=== PATIENT | female | born 1970 | race Caucasian/White ===

== ENCOUNTER 2017-03-01 09:12 | Emergency (ER) | payer OTHER ==
[~2017-03-01] VITALS: Ht 157.5 cm; Wt 100.3 kg
[2017-03-01] MEDS ORDERED: AMLO5TAB2 (09:27)
[2017-03-01] MEDS ORDERED: SIMV20TA2 (09:27)
[2017-03-01] MEDS ORDERED: ASPI81TA7 (09:27)
[2017-03-01] MEDS ORDERED: ASPI81TA4 (09:27)
[2017-03-01] MEDS ORDERED: IBUP600T26 (09:27)
[2017-03-01] MEDS ORDERED: LISI-538 (09:27)
[2017-03-01] MEDS ORDERED: CARV3.12 (09:27)
[2017-03-01] MEDS ORDERED: ALBUTEROL 90 MCG/ACT 8GM HFA INHALER INH ONE (10:30)
[2017-03-01 11:00] VITALS: BP 172/102
[2017-03-01] MEDS ORDERED: MUCI600T34 PO (11:05)
[2017-03-01] MEDS ORDERED: ZITHTAB PO (11:05)
[2017-03-01] MEDS ORDERED: BENZ200C44 PO (11:05)
[2017-03-01] MEDS ORDERED: PRED20TA PO (11:05)
== END 2017-03-01 11:12 | disposition home or self-care (01) ==
LOC: M ED 10:09
DX: R05 Cough (principal); J02.9 Acute pharyngitis, unspecified; I10 Essential (primary) hypertension; E78.00 Pure hypercholesterolemia, unspecified; E03.9 Hypothyroidism, unspecified; F17.200 Nicotine dependence, unspecified, uncomplicated; Z90.79 Acquired absence of other genital organ(s); Z90.89 Acquired absence of other organs; Z79.82 Long term (current) use of aspirin; Z79.899 Other long term (current) drug therapy; Z88.1 Allergy status to other antibiotic agents

== ENCOUNTER → 2023-08-31 | Outpatient (CLI) | payer OTHER ==
[~2023-08-31] MED LIST: AMLO1TAB24; AMOX875T2; ASPI-546; ASPI81TA52; ATOR80TA59; BENZ200C70 PO; CARV3.12; COLA100C5 PO; IBUP-1022; LISI20TA33; LORA-1041; MUCI600T37 PO; OMEP-173; PRED20TA PO; SIMV20TA22; VITMTA PO; ZITHTAB PO; vitamin c gummies PO
[2023-08-31 16:25] LABS: BASO % 0.3 % (0.0-1.0); EOS # 0.2 10^3/uL (0.0-0.5); EOS % 2.2 % (0.0-3.0); HEMOGLOBIN 14.3 g/dl (12.0-15.5); LYMPH # 2.9 10^3/uL (1.5-5.0); LYMPH % 31.2 % (24.0-44.0); MEAN CORPUSCULAR HEMOGLOBIN 29.1 pg (27.0-33.0); MEAN CORPUSCULAR VOLUME 85.5 fl (80.0-96.0); MONO # 0.6 10^3/uL (0.0-0.8); MONO % 6.2 % (2.0-8.0); NEUTROPHILS # 5.5 10^3/uL (1.5-8.5); NEUTROPHILS % 59.9 % (36.0-66.0); PLATELET COUNT, AUTOMATED 310 10^3/uL (150-450); RED BLOOD COUNT 4.91 10^6/uL (4.00-5.40); WHITE BLOOD COUNT 9.1 10^3/uL (4.0-10.0)
[2023-08-31 16:46] LABS: ALBUMIN 3.5 G/DL (3.2-5.2); ALKALINE PHOSPHATASE 91 U/L (46-116); ALT/SGPT 19 U/L (7.0-40); AST/SGOT 22 U/L (<34); BILIRUBIN,TOTAL 0.5 MG/DL (0.3-1.2); BLOOD UREA NITROGEN 11 MG/DL (9-23); CALCIUM LEVEL 9.2 MG/DL (8.5-10.1); CARBON DIOXIDE LEVEL 28 MMOL/L (20-31); CHLORIDE LEVEL 108 MMOL/L (98-107); CREATININE FOR GFR 0.72 MG/DL (0.55-1.30); GLOMERULAR FILTRATION RATE > 60.0 (>51); GLUCOSE, FASTING 112 MG/DL (60-100); POTASSIUM SERUM 3.7 MMOL/L (3.5-5.1); SODIUM LEVEL 142 MMOL/L (136-145); TOTAL PROTEIN 6.6 G/DL (5.7-8.2)
[2023-08-31 17:18] LABS: HIV 1&2 SCREEN NEGATIVE (NEGATIVE)
== END ==
LOC: M ONCR 14:50
PROVIDERS: ATTEND General Practice
DX: C51.8 Malignant neoplasm of overlapping sites of vulva (principal); F17.210 Nicotine dependence, cigarettes, uncomplicated; Z71.2 Person consulting for explanation of examination or test findings; Z79.82 Long term (current) use of aspirin; Z79.899 Other long term (current) drug therapy; Z88.1 Allergy status to other antibiotic agents; Z90.710 Acquired absence of both cervix and uterus
CPT/HCPCS: 36415; 80053; 85025; 86780; 87389; G0463

== ENCOUNTER 2023-09-06 13:51 | Outpatient (RCR) | payer OTHER | END 2023-09-18 | LOC: M ONCR 13:51 | PROVIDERS: ATTEND General Practice | DX: Z51.0 Encounter for antineoplastic radiation therapy (principal); C51.8 Malignant neoplasm of overlapping sites of vulva ==

== ENCOUNTER → 2023-10-04 | Outpatient (CLI) | payer OTHER ==
[~2023-10-04] MED LIST changes: +IBUP200C25 PO; +LIDO30CR18 TOP; +LIDOCAINE 1% MDV 20ML VIAL As Ordered ONE; +LIDOCAINE W/EPINEPHRINE 1% 20ML VIAL As Ordered ONE; +MIDAZOLAM INJ 2MG/2ML VIAL As Ordered ONE; +ONDA8TAB8 PO; +PERCOCET PO; +PROC10TA5 PO; +[UNRECOGNIZED DRUG - CODE] TP; +ceFAZolin 2 GM/D5W 50 ML IV BAG As Ordered ONE; +ceFAZolin SOD 2 GM in IV 1 EA IV ONE; +fentaNYL 100 MCG/2 ML INJECTION As Ordered ONE
[2023-10-04 12:40] VITALS: TEMP 98.2
[2023-10-04 16:45] VITALS: BP 177/73; O2SAT 97
== END ==
LOC: M IRPRO 12:29
PROVIDERS: ATTEND Internal Medicine Medical Oncology
DX: C21.0 Malignant neoplasm of anus, unspecified (principal)
CPT/HCPCS: 36561; 99152; 99153; J0690; J2250; J3010

== ENCOUNTER → 2023-10-19 | Outpatient (RCR) | payer OTHER ==
[~2023-10-19] MED LIST changes: -LIDOCAINE 1% MDV 20ML VIAL As Ordered ONE; -LIDOCAINE W/EPINEPHRINE 1% 20ML VIAL As Ordered ONE; -MIDAZOLAM INJ 2MG/2ML VIAL As Ordered ONE; +POTA-298 PO; +THERTAB21 PO; -ceFAZolin 2 GM/D5W 50 ML IV BAG As Ordered ONE; -ceFAZolin SOD 2 GM in IV 1 EA IV ONE; -fentaNYL 100 MCG/2 ML INJECTION As Ordered ONE
== END ==
LOC: M ONCR 09-26 08:19 → M ONCM 10-07 08:30 → M ONCR 10-10 08:04
PROVIDERS: ATTEND General Practice
DX: Z51.0 Encounter for antineoplastic radiation therapy (principal); C51.8 Malignant neoplasm of overlapping sites of vulva

== ENCOUNTER 2023-11-16 12:29 | Outpatient (RCR) | payer OTHER ==
[~2023-11-16 12:29] MED LIST changes: +MAG-400T7 PO; +MULT-193 PO; +[UNRECOGNIZED DRUG - SUPPLY]
== END 2023-11-17 ==
LOC: M ONCR 12:29
PROVIDERS: ATTEND General Practice
DX: Z51.0 Encounter for antineoplastic radiation therapy (principal); C51.8 Malignant neoplasm of overlapping sites of vulva

== ENCOUNTER → 2023-11-23 | Outpatient (CLI) | payer OTHER | LOC: M ONCR 12:28 | PROVIDERS: ATTEND General Practice | DX: L59.8 Other specified disorders of the skin and subcutaneous tissue related to radiation (principal); W88.8XXA Exposure to other ionizing radiation, initial encounter; Z79.891 Long term (current) use of opiate analgesic ==

== ENCOUNTER → 2023-12-07 | Outpatient (CLI) | payer OTHER ==
[~2023-12-07] MED LIST changes: +CEPH500C PO; +DEXA4TA PO
== END ==
LOC: M ONCR 10:14
PROVIDERS: ATTEND General Practice
DX: R22.2 Localized swelling, mass and lump, trunk (principal); R63.0 Anorexia; R11.0 Nausea

== ENCOUNTER → 2023-12-08 | Outpatient (CLI) | payer OTHER | LOC: M RAD 11:02 | PROVIDERS: ATTEND General Practice | DX: C51.8 Malignant neoplasm of overlapping sites of vulva (principal) ==

== ENCOUNTER 2023-12-15 23:14 | Inpatient (IN) | payer OTHER ==
[~2023-12-15] VITALS: Ht 162.6 cm; Wt 54.0 kg
[~2023-12-15 23:14] MED LIST changes: +BACTDSTA PO
[2023-12-16] MEDS: NS 1,000 ML IV ONE (00:37)
[2023-12-16 00:44] LABS: BASO % 0.2 % (0.0-1.0); EOS # 0.1 10^3/uL (0.0-0.5); EOS % 0.4 % (0.0-3.0); HEMATOCRIT 40.2 % (36.0-47.0); HEMOGLOBIN 13.7 g/dl (12.0-15.5); LYMPH % 8.3 % (24.0-44.0); MEAN CORPUSCULAR HEMOGLOBIN 29.3 pg (27.0-33.0); MEAN CORPUSCULAR HGB CONC 34.1 g/dl (32.0-36.5); MEAN CORPUSCULAR VOLUME 86.1 fl (80.0-96.0); MONO # 1.2 10^3/uL (0.0-0.8); MONO % 9.3 % (2.0-8.0); NEUTROPHILS % 80.9 % (36.0-66.0); PLATELET COUNT, AUTOMATED 213 10^3/uL (150-450); RED BLOOD COUNT 4.67 10^6/uL (4.00-5.40); WHITE BLOOD COUNT 12.4 10^3/uL (4.0-10.0)
[2023-12-16 01:05] LABS: BLOOD UREA NITROGEN 47 MG/DL (9-23); CARBON DIOXIDE LEVEL 25 MMOL/L (20-31); CHLORIDE LEVEL 103 MMOL/L (98-107); CREATININE FOR GFR 1.67 MG/DL (0.55-1.30); GLUCOSE, FASTING 159 MG/DL (60-100); POTASSIUM SERUM 4.4 MMOL/L (3.5-5.1); SODIUM LEVEL 139 MMOL/L (136-145)
[2023-12-16 02:09] LABS: LIPASE 24 U/L (12-53)
[2023-12-16 02:11] LABS: ALBUMIN 3.3 G/DL (3.2-5.2); ALKALINE PHOSPHATASE 85 U/L (46-116); ALT/SGPT 28 U/L (7.0-40); AST/SGOT 22 U/L (<34); BILIRUBIN,DIRECT 0.2 MG/DL (<0.4); BILIRUBIN,TOTAL 0.6 MG/DL (0.3-1.2); CK-MB VALUE MASS < 1.0 NG/ML (<3.6); CPK CREATINE PHOSPHOKINASE 38 U/L (34-145); MB/CK RELATIVE INDEX 2.63 (< OR =4); TOTAL PROTEIN 7.3 G/DL (5.7-8.2)
[2023-12-16] MEDS: METOCLOPRAMIDE INJ 10MG/2ML VIAL IV ONE (02:17)
[2023-12-16] MEDS ORDERED: ISOVUE-370 76% 100ML VIAL As Ordered ONE (02:23)
[2023-12-16 03:03] LABS: CK-MB VALUE MASS < 1.0 NG/ML (<3.6)
[2023-12-16 03:05] LABS: CPK CREATINE PHOSPHOKINASE 44 U/L (34-145); MB/CK RELATIVE INDEX 2.27 (< OR =4)
[2023-12-16] MEDS ORDERED: NS 1,000 ML IV SCH (05:35)
[2023-12-16] MEDS ORDERED: HYDROMORPHONE HCL 0.5 MG/ 0.5 ML SYRINGE IV PRN (06:10)
[2023-12-16] MEDS: PIPERACILLIN/TAZOBACTAM SOD 3.375 GM in D5W MINI-BAG PLUS 50 ML IV ONE (06:23)
[2023-12-16] MEDS: SODIUM CHLORIDE 0.9% 1000ML IV SCH (06:23)
[2023-12-16] MEDS ORDERED: LISI40TA4 PO (06:26)
[2023-12-16] MEDS ORDERED: DOCU100C16 PO (06:26)
[2023-12-16] MEDS ORDERED: ATOR80TA59 PO (06:26)
[2023-12-16] MEDS ORDERED: ALBU8.5H INH (06:26)
[2023-12-16] MEDS ORDERED: LORA-622 PO (06:26)
[2023-12-16] MEDS ORDERED: ASPI-615 PO (06:26)
[2023-12-16] MEDS ORDERED: OMEP1CAP73 PO (06:26)
[2023-12-16] MEDS ORDERED: MULT-40 PO (06:26)
[2023-12-16] MEDS ORDERED: MIRA33506 PO (06:26)
[2023-12-16] MEDS ORDERED: DEXTROSE 50% 50ML SYRINGE IV PRN (06:30)
[2023-12-16] MEDS ORDERED: HOME MED LIST COMPLETE! XX SCH (06:30)
[2023-12-16] MEDS ORDERED: GLUCAGON INJ 1MG VIAL SC PRN (06:30)
[2023-12-16] MEDS ORDERED: GLUCOSE 4GM CHEW TABLET PO PRN (06:30)
[2023-12-16] MEDS: INSULIN LISPRO (NovoLOG) PER UNIT SC SCH (08:41)
[2023-12-16] MEDS: LR 1,000 ML IV SCH (08:50)
[2023-12-16 09:25] LABS: BASO % 0.1 % (0.0-1.0); EOS # 0.1 10^3/uL (0.0-0.5); EOS % 0.7 % (0.0-3.0); HEMATOCRIT 33.4 % (36.0-47.0); LYMPH # 0.8 10^3/uL (1.5-5.0); LYMPH % 8.5 % (24.0-44.0); MEAN CORPUSCULAR HEMOGLOBIN 29.5 pg (27.0-33.0); MEAN CORPUSCULAR HGB CONC 33.8 g/dl (32.0-36.5); MEAN CORPUSCULAR VOLUME 87.2 fl (80.0-96.0); MONO # 0.8 10^3/uL (0.0-0.8); MONO % 9.5 % (2.0-8.0); NEUTROPHILS # 7.1 10^3/uL (1.5-8.5); NEUTROPHILS % 80.6 % (36.0-66.0); PLATELET COUNT, AUTOMATED 190 10^3/uL (150-450); RED BLOOD COUNT 3.83 10^6/uL (4.00-5.40); WHITE BLOOD COUNT 8.8 10^3/uL (4.0-10.0)
[2023-12-16 09:42] LABS: CREATININE FOR GFR 1.33 MG/DL (0.55-1.30); GLOMERULAR FILTRATION RATE 44.3 (>51); HEMOGLOBIN 11.3 g/dl (12.0-15.5); MAGNESIUM LEVEL 1.4 MG/DL (1.8-2.4)
[2023-12-16 10:14] VITALS: BP 116/65; TEMP 97.5; O2SAT 99
[2023-12-16] MEDS: PANTOPRAZOLE 40MG VIAL IV SCH (11:18)
[2023-12-16] MEDS: HYDROMORPHONE HCL 0.5 MG/ 0.5 ML SYRINGE IV PRN (11:19)
[2023-12-16] MEDS: MAG SULF 1GM/100ML (MAG RUN) 1 GM in IV 1 EA IV SCH (11:19)
[2023-12-16] MEDS ORDERED: PIPERACILLIN/TAZOBACTAM SOD 3.375 GM in D5W MINI-BAG PLUS 50 ML IV SCH (12:00)
[2023-12-16] MEDS ORDERED: ACETAMINOPHEN TAB 650MG DOSE (2X325MG) PO PRN (12:05)
[2023-12-16] MEDS ORDERED: HEPARIN SOD (PORCINE) 5000UNITS/ML 1ML VIAL/SYRINGE SQ SCH (12:05)
[2023-12-16] MEDS: NICOTINE 14 MG/24 HR TRANSDERMAL TD SCH (12:37)
[2023-12-16 13:21] LABS: CALCIUM LEVEL 8.1 MG/DL (8.5-10.1)
[2023-12-16] MEDS: PIPERACILLIN/TAZOBACTAM SOD 2.25 GM in D5W MINI-BAG PLUS 50 ML IV SCH (13:40)
[2023-12-16 14:00] VITALS: BP 126/61; TEMP 97.3; O2SAT 99
[2023-12-16] MEDS: PIPERACILLIN/TAZOBACTAM SOD 3.375 GM in D5W MINI-BAG PLUS 50 ML IV SCH (18:26)
[2023-12-16 20:39] VITALS: BP 131/60; TEMP 97.3; O2SAT 98
[2023-12-16] MEDS: HEPARIN SOD (PORCINE) 5000UNITS/ML 1ML VIAL/SYRINGE SC SCH (21:43)
[2023-12-17 05:25] VITALS: BP 123/80; TEMP 97.5; O2SAT 99
[2023-12-17 06:10] LABS: WHITE BLOOD COUNT 7.7 10^3/uL (4.0-10.0)
[2023-12-17 06:11] LABS: BASO % 0.1 % (0.0-1.0); EOS # 0.1 10^3/uL (0.0-0.5); EOS % 1.4 % (0.0-3.0); HEMATOCRIT 31.1 % (36.0-47.0); HEMOGLOBIN 10.3 g/dl (12.0-15.5); LYMPH # 0.6 10^3/uL (1.5-5.0); LYMPH % 7.6 % (24.0-44.0); MEAN CORPUSCULAR HEMOGLOBIN 28.7 pg (27.0-33.0); MEAN CORPUSCULAR HGB CONC 33.1 g/dl (32.0-36.5); MEAN CORPUSCULAR VOLUME 86.6 fl (80.0-96.0); MONO # 0.8 10^3/uL (0.0-0.8); MONO % 10.3 % (2.0-8.0); NEUTROPHILS # 6.1 10^3/uL (1.5-8.5); NEUTROPHILS % 80.2 % (36.0-66.0); PLATELET COUNT, AUTOMATED 180 10^3/uL (150-450); RED BLOOD COUNT 3.59 10^6/uL (4.00-5.40)
[2023-12-17 06:24] LABS: CALCIUM LEVEL 8.5 MG/DL (8.5-10.1); CREATININE FOR GFR 1.06 MG/DL (0.55-1.30); GLOMERULAR FILTRATION RATE 57.5 (>51); POTASSIUM SERUM 3.8 MMOL/L (3.5-5.1)
[2023-12-17] MEDS: LACTOBACILLUS ACIDOPHILUS CAP (BACID) PO SCH (08:21)
[2023-12-17] MEDS: IPRATROPIUM 0.5MG/ALBUTEROL 2.5MG INH SOL UD 3ML (DUONEB) NEB SCH ×2 (09:13→10:59)
[2023-12-17] MEDS: CETIRIZINE (ZyrTEC) 10 MG TAB PO SCH (09:25)
[2023-12-17] MEDS: guaiFENesin ER TABLET 600 MG TAB PO SCH (09:25)
[2023-12-17 14:00] VITALS: BP 120/60; TEMP 97.5; O2SAT 100
[2023-12-17] MEDS ORDERED: GLUCAGON INJ 1MG VIAL SC PRN (14:20)
[2023-12-17] MEDS ORDERED: GLUCOSE 4GM CHEW TABLET PO PRN (14:20)
[2023-12-17] MEDS ORDERED: DEXTROSE 50% 50ML SYRINGE IV PRN (14:20)
[2023-12-17] MEDS: INSULIN LISPRO (NovoLOG) PER UNIT SC SCH ×2 (17:28→21:00)
[2023-12-17] MEDS ORDERED: INSULIN LISPRO (NovoLOG) PER UNIT SC SCH ×2 (17:30→21:00)
[2023-12-17 20:09] VITALS: BP 152/69; TEMP 97.3; O2SAT 100
[2023-12-18 06:10] LABS: BLOOD UREA NITROGEN 25 MG/DL (9-23); CALCIUM LEVEL 8.2 MG/DL (8.5-10.1); CARBON DIOXIDE LEVEL 24 MMOL/L (20-31); CHLORIDE LEVEL 111 MMOL/L (98-107); CREATININE FOR GFR 0.87 MG/DL (0.55-1.30); GLOMERULAR FILTRATION RATE > 60.0 (>51); GLUCOSE, FASTING 101 MG/DL (60-100); POTASSIUM SERUM 3.7 MMOL/L (3.5-5.1); SODIUM LEVEL 146 MMOL/L (136-145)
[2023-12-18 06:22] VITALS: BP 167/78; TEMP 97.5; O2SAT 98
[2023-12-18 06:23] LABS: HEMOGLOBIN 9.3 g/dl (12.0-15.5); RED BLOOD COUNT 3.16 10^6/uL (4.00-5.40); WHITE BLOOD COUNT 6.2 10^3/uL (4.0-10.0)
[2023-12-18 06:24] LABS: BASO % 0.2 % (0.0-1.0); EOS # 0.1 10^3/uL (0.0-0.5); EOS % 1.1 % (0.0-3.0); HEMATOCRIT 27.6 % (36.0-47.0); LYMPH # 0.6 10^3/uL (1.5-5.0); LYMPH % 8.9 % (24.0-44.0); MEAN CORPUSCULAR HEMOGLOBIN 29.4 pg (27.0-33.0); MEAN CORPUSCULAR HGB CONC 33.7 g/dl (32.0-36.5); MEAN CORPUSCULAR VOLUME 87.3 fl (80.0-96.0); MONO # 0.7 10^3/uL (0.0-0.8); MONO % 11.7 % (2.0-8.0); NEUTROPHILS # 4.8 10^3/uL (1.5-8.5); NEUTROPHILS % 77.9 % (36.0-66.0); PLATELET COUNT, AUTOMATED 193 10^3/uL (150-450)
[2023-12-18] MEDS: D5W 1,000 ML IV ONE (08:43)
[2023-12-18] MEDS: HYDROMORPHONE HCL 0.5 MG/ 0.5 ML SYRINGE IV ONE (08:44)
[2023-12-18 08:54] LABS: MAGNESIUM LEVEL 1.5 MG/DL (1.8-2.4)
[2023-12-18] MEDS: MAG SULF 1GM/100ML (MAG RUN) 1 GM in IV 1 EA IV ONE ×2 (09:57→19:40)
[2023-12-18] MEDS: NS 0.45% 1,000 ML IV SCH (09:57)
[2023-12-18] MEDS: ONDANSETRON 4MG 2ML VIAL IV PRN (11:54)
[2023-12-18] MEDS ORDERED: MIDAZOLAM INJ 2MG/2ML VIAL As Ordered ONE (13:29)
[2023-12-18] MEDS ORDERED: fentaNYL 100 MCG/2 ML INJECTION As Ordered ONE (13:29)
[2023-12-18] MEDS ORDERED: propofoL 200 MG/20 ML VIAL As Ordered ONE (15:25)
[2023-12-18] MEDS ORDERED: CHLOROPROCAINE PRES. FREE 2% 20ML VIAL As Ordered ONE (16:33)
[2023-12-18] MEDS ORDERED: ONDANSETRON 4MG 2ML VIAL As Ordered ONE (16:33)
[2023-12-18] MEDS ORDERED: KETOROLAC 60MG 2ML VIAL As Ordered ONE (16:33)
[2023-12-18] MEDS ORDERED: HYDROMORPHONE HCL 0.5 MG/ 0.5 ML SYRINGE IV PRN (17:10)
[2023-12-18] MEDS ORDERED: oxyCODONE 5MG TAB PO PRN (17:10)
[2023-12-18] MEDS: LR 1,000 ML IV SCH (17:10)
[2023-12-18] MEDS ORDERED: fentaNYL 100 MCG/2 ML INJECTION IV PRN (17:10)
[2023-12-18] MEDS ORDERED: ONDANSETRON 4MG 2ML VIAL IV PRN (17:10)
[2023-12-18 17:35] VITALS: BP 141/84; TEMP 97.3; O2SAT 98
[2023-12-18 18:23] LABS: BLOOD UREA NITROGEN 17 MG/DL (9-23); CALCIUM LEVEL 7.9 MG/DL (8.5-10.1); CARBON DIOXIDE LEVEL 25 MMOL/L (20-31); CHLORIDE LEVEL 106 MMOL/L (98-107); GLOMERULAR FILTRATION RATE > 60.0 (>51); GLUCOSE, FASTING 117 MG/DL (60-100); SODIUM LEVEL 137 MMOL/L (136-145)
[2023-12-18] MEDS: POTASSIUM CHLORIDE 10% LIQ 20MEQ/15ML UDC PO SCH (20:00)
[2023-12-18] MEDS: FIDAXOMICIN 200 MG TAB (DIFICID) PO SCH (20:21)
[2023-12-18] MEDS ORDERED: FIDAXOMICIN 200 MG TAB (DIFICID) PO SCH (21:00)
[2023-12-18] MEDS: POTASSIUM CHLORIDE 10MEQ SR TABLET PO SCH (21:51)
[2023-12-18 22:00] VITALS: BP_SYST 129; BP_SYST 135; BP_DIAS 80; BP_DIAS 85; TEMP 97.5; TEMP 97.9; O2SAT 99
[2023-12-19 00:45] LABS: BLOOD UREA NITROGEN 14 MG/DL (9-23); CALCIUM LEVEL 8.4 MG/DL (8.5-10.1); CARBON DIOXIDE LEVEL 23 MMOL/L (20-31); CHLORIDE LEVEL 105 MMOL/L (98-107); CREATININE FOR GFR 0.82 MG/DL (0.55-1.30); GLOMERULAR FILTRATION RATE > 60.0 (>51); GLUCOSE, FASTING 108 MG/DL (60-100); POTASSIUM SERUM 2.6 MMOL/L (3.5-5.1); SODIUM LEVEL 137 MMOL/L (136-145)
[2023-12-19] MEDS: KCL 10MEQ/100ML SWI (KRUN) 10 MEQ in IV 1 EA IV SCH (01:02)
[2023-12-19 05:56] LABS: HEMATOCRIT 26.2 % (36.0-47.0); HEMOGLOBIN 8.9 g/dl (12.0-15.5); MEAN CORPUSCULAR HEMOGLOBIN 29.5 pg (27.0-33.0); MEAN CORPUSCULAR VOLUME 86.8 fl (80.0-96.0); PLATELET COUNT, AUTOMATED 196 10^3/uL (150-450); RED BLOOD COUNT 3.02 10^6/uL (4.00-5.40); WHITE BLOOD COUNT 5.4 10^3/uL (4.0-10.0)
[2023-12-19 05:57] LABS: BASO % 0.2 % (0.0-1.0); EOS # 0.1 10^3/uL (0.0-0.5); EOS % 1.9 % (0.0-3.0); LYMPH # 0.6 10^3/uL (1.5-5.0); LYMPH % 11.3 % (24.0-44.0); MONO # 0.7 10^3/uL (0.0-0.8); MONO % 12.4 % (2.0-8.0); NEUTROPHILS % 73.5 % (36.0-66.0)
[2023-12-19 06:00] VITALS: BP 151/91; TEMP 97.7; O2SAT 94
[2023-12-19 06:15] LABS: BLOOD UREA NITROGEN 13 MG/DL (9-23); CALCIUM LEVEL 7.6 MG/DL (8.5-10.1); CARBON DIOXIDE LEVEL 24 MMOL/L (20-31); CHLORIDE LEVEL 106 MMOL/L (98-107); CREATININE FOR GFR 0.82 MG/DL (0.55-1.30); GLOMERULAR FILTRATION RATE > 60.0 (>51); GLUCOSE, FASTING 99 MG/DL (60-100); MAGNESIUM LEVEL 1.5 MG/DL (1.8-2.4); POTASSIUM SERUM 3.5 MMOL/L (3.5-5.1); SODIUM LEVEL 139 MMOL/L (136-145)
[2023-12-19] MEDS ORDERED: PERCOCET 5MG/325MG TAB PO PRN (07:25)
[2023-12-19] MEDS: PERCOCET 5MG/325MG TAB PO ONE (07:45)
[2023-12-19] MEDS: LACTOBACILLUS ACIDOPHILUS CAP (BACID) PO SCH (08:00)
[2023-12-19] MEDS: MAG SULF 1GM/100ML (MAG RUN) 1 GM in IV 1 EA IV SCH (08:09)
[2023-12-19] MEDS: KCL 40MEQ in NS 1000ML 1,000 ML IV SCH (08:09)
[2023-12-19] MEDS: PERCOCET 5MG/325MG TAB PO PRN (08:14)
[2023-12-19] MEDS: KETOROLAC 30 MG/ML 1ML VIAL IV SCH (08:18)
[2023-12-19] MEDS: CALCIUM GLUCONATE 1,000 MG in D5W MINI-BAG PLUS 100 ML IV ONE (10:32)
[2023-12-19 14:09] VITALS: BP 127/66; TEMP 97.7; O2SAT 6; O2SAT 96
[2023-12-19 20:00] VITALS: BP 153/81; TEMP 97.7; O2SAT 96
[2023-12-20 00:31] LABS: HEMATOCRIT 27.2 % (36.0-47.0); MEAN CORPUSCULAR HEMOGLOBIN 28.9 pg (27.0-33.0); MEAN CORPUSCULAR HGB CONC 33.1 g/dl (32.0-36.5); MEAN CORPUSCULAR VOLUME 87.5 fl (80.0-96.0); PLATELET COUNT, AUTOMATED 207 10^3/uL (150-450); RED BLOOD COUNT 3.11 10^6/uL (4.00-5.40); WHITE BLOOD COUNT 4.6 10^3/uL (4.0-10.0)
[2023-12-20 00:57] LABS: ALBUMIN 2.1 G/DL (3.2-5.2); ALKALINE PHOSPHATASE 58 U/L (46-116); ALT/SGPT 10 U/L (7.0-40); AST/SGOT 14 U/L (<34); BILIRUBIN,TOTAL 0.4 MG/DL (0.3-1.2); BLOOD UREA NITROGEN 8 MG/DL (9-23); CARBON DIOXIDE LEVEL 22 MMOL/L (20-31); CHLORIDE LEVEL 110 MMOL/L (98-107); CREATININE FOR GFR 0.76 MG/DL (0.55-1.30); GLOMERULAR FILTRATION RATE > 60.0 (>51); GLUCOSE, FASTING 87 MG/DL (60-100); MAGNESIUM LEVEL 1.4 MG/DL (1.8-2.4); POTASSIUM SERUM 3.7 MMOL/L (3.5-5.1); SODIUM LEVEL 142 MMOL/L (136-145); TOTAL PROTEIN 4.9 G/DL (5.7-8.2)
[2023-12-20] MEDS: MAG SULF 1GM/100ML (MAG RUN) 1 GM in IV 1 EA IV SCH (03:51)
[2023-12-20 06:00] VITALS: BP 118/68; TEMP 97.7; O2SAT 95
[2023-12-20 08:29] LABS: BASO % 0.6 % (0.0-1.0); EOS # 0.1 10^3/uL (0.0-0.5); HEMATOCRIT 32.2 % (36.0-47.0); HEMOGLOBIN 10.8 g/dl (12.0-15.5); LYMPH # 1.1 10^3/uL (1.5-5.0); LYMPH % 17.2 % (24.0-44.0); MEAN CORPUSCULAR HGB CONC 33.5 g/dl (32.0-36.5); MEAN CORPUSCULAR VOLUME 86.3 fl (80.0-96.0); MONO # 0.8 10^3/uL (0.0-0.8); MONO % 11.9 % (2.0-8.0); NEUTROPHILS # 4.3 10^3/uL (1.5-8.5); PLATELET COUNT, AUTOMATED 265 10^3/uL (150-450); RED BLOOD COUNT 3.73 10^6/uL (4.00-5.40); WHITE BLOOD COUNT 6.4 10^3/uL (4.0-10.0)
[2023-12-20 08:54] LABS: BLOOD UREA NITROGEN 8 MG/DL (9-23); CALCIUM LEVEL 8.4 MG/DL (8.5-10.1); CARBON DIOXIDE LEVEL 20 MMOL/L (20-31); CHLORIDE LEVEL 106 MMOL/L (98-107); CREATININE FOR GFR 0.77 MG/DL (0.55-1.30); GLOMERULAR FILTRATION RATE > 60.0 (>51); GLUCOSE, FASTING 119 MG/DL (60-100); POTASSIUM SERUM 4.2 MMOL/L (3.5-5.1); SODIUM LEVEL 140 MMOL/L (136-145)
[2023-12-20] MEDS ORDERED: AMOX875T2 PO (11:16)
[2023-12-20] MEDS ORDERED: BACI1CAP PO (11:16)
[2023-12-20] MEDS ORDERED: DIFI200T PO (11:16)
[2023-12-20] MEDS ORDERED: SELF1KIT MC (11:19)
[2023-12-20] MEDS ORDERED: NORV5TAB PO (11:19)
[2023-12-20] MEDS ORDERED: PERCOCET PO (11:19)
[2023-12-20 14:00] VITALS: BP 138/74; TEMP 97.7; O2SAT 98
[2023-12-20] MEDS ORDERED: VANC1CAP7 PO (14:42)
[2023-12-27] MEDS ORDERED: PERCOCET PO (13:01)
== END 2023-12-20 15:15 | disposition home or self-care (01) | DRG 226 ==
LOC: EDBD 23:14 → M ED 23:14 → M ED INP 12-16 06:07 → M MSPAV 12-16 10:15
PROVIDERS: ADMIT Internal Medicine; ATTEND General Practice
PROC: 0JBB0ZZ Excision of Perineum Subcutaneous Tissue and Fascia, Open Approach (ICD-10-PCS; 2023-12-18)
PROC: 0D9Q0ZZ Drainage of Anus, Open Approach (ICD-10-PCS; principal; 2023-12-18 11:56)
DX: K61.0 Anal abscess (principal); I47.20 Ventricular tachycardia, unspecified; N17.9 Acute kidney failure, unspecified; E87.0 Hyperosmolality and hypernatremia; D68.32 Hemorrhagic disorder due to extrinsic circulating anticoagulants; E83.42 Hypomagnesemia; D62 Acute posthemorrhagic anemia; A04.72 Enterocolitis due to Clostridium difficile, not specified as recurrent; E83.51 Hypocalcemia; L03.311 Cellulitis of abdominal wall; C51.9 Malignant neoplasm of vulva, unspecified; E11.9 Type 2 diabetes mellitus without complications; E78.00 Pure hypercholesterolemia, unspecified; E78.5 Hyperlipidemia, unspecified; E87.6 Hypokalemia; I10 Essential (primary) hypertension; J21.0 Acute bronchiolitis due to respiratory syncytial virus; Z92.3 Personal history of irradiation; E86.0 Dehydration; Z92.21 Personal history of antineoplastic chemotherapy; Z79.899 Other long term (current) drug therapy; Z79.82 Long term (current) use of aspirin; Z88.8 Allergy status to other drugs, medicaments and biological substances; F17.210 Nicotine dependence, cigarettes, uncomplicated; R91.1 Solitary pulmonary nodule

== ENCOUNTER → 2024-01-18 | Outpatient (CLI) | payer OTHER ==
[~2024-01-18] MED LIST changes: +ALBU8.5H INH; +AMOX875T2 PO; +ASPI-615 PO; +ATOR80TA59 PO; +BACI1CAP PO; +DIFI200T PO; +DOCU100C16 PO; +LISI40TA4 PO; +LORA-622 PO; +MIRA33506 PO; +MULT-40 PO; +NORV5TAB PO; +OMEP1CAP73 PO; +OXYC20TA2 PO; +SELF1KIT MC; +VANC1CAP7 PO
== END ==
LOC: EEVIPCON 10:15 → M ONCR 10:47
PROVIDERS: ATTEND General Practice
DX: C51.8 Malignant neoplasm of overlapping sites of vulva (principal); F17.210 Nicotine dependence, cigarettes, uncomplicated; Z71.2 Person consulting for explanation of examination or test findings; Z79.82 Long term (current) use of aspirin; Z79.891 Long term (current) use of opiate analgesic; Z79.899 Other long term (current) drug therapy; Z88.1 Allergy status to other antibiotic agents; Z91.048 Other nonmedicinal substance allergy status; Z92.21 Personal history of antineoplastic chemotherapy; Z92.3 Personal history of irradiation
CPT/HCPCS: 99214; G0463

== ENCOUNTER → 2024-02-28 | Outpatient (CLI) | payer OTHER ==
[~2024-02-28] VITALS: Ht 157.5 cm; Wt 70.8 kg
[~2024-02-28] MED LIST changes: +ACE65ERTAB PO; +AMLO1TAB24 PO; +CEFD1CAP9 PO; +LIDO4SO TOP; +MAGN1TAB26 PO; +MAGN400T35 PO; +METR-265 PO; +ONDA-284 PO; -ONDA8TAB8 PO; +OXYC-517 PO; +OXYC10TA3 PO; +PERC7.5T11 PO; +POTA-151 PO; +RISATAB3 PO; +VANC1CAP6 PO
[2024-02-28 13:11] VITALS: BP 134/88; O2SAT 97
== END ==
LOC: M PAL 12:46
PROVIDERS: ATTEND Nurse Practitioner Adult Health
DX: G89.3 Neoplasm related pain (acute) (chronic) (principal); C51.9 Malignant neoplasm of vulva, unspecified; R10.2 Pelvic and perineal pain; K59.00 Constipation, unspecified; Z51.5 Encounter for palliative care; F17.210 Nicotine dependence, cigarettes, uncomplicated; Z79.82 Long term (current) use of aspirin; Z79.891 Long term (current) use of opiate analgesic; Z79.899 Other long term (current) drug therapy; Z86.16 Personal history of COVID-19; Z88.1 Allergy status to other antibiotic agents; Z92.21 Personal history of antineoplastic chemotherapy; Z92.3 Personal history of irradiation; Z91.048 Other nonmedicinal substance allergy status

== ENCOUNTER → 2024-03-15 | Outpatient (REF) | payer OTHER | LOC: M SFHCWOUN 18:06 | PROVIDERS: ATTEND Surgery | DX: S31.829A Unspecified open wound of left buttock, initial encounter (principal); L81.9 Disorder of pigmentation, unspecified ==

== ENCOUNTER → 2024-03-29 | Outpatient (REF) | payer OTHER ==
[~2024-03-29] MED LIST changes: +[UNRECOGNIZED DRUG - OTHER] PO
== END ==
LOC: M SFHCWOUN 17:19
PROVIDERS: ATTEND Surgery
DX: D04.8 Carcinoma in situ of skin of other sites (principal); L90.5 Scar conditions and fibrosis of skin; L81.9 Disorder of pigmentation, unspecified

== ENCOUNTER → 2024-04-10 | Outpatient (CLI) | payer OTHER ==
[~2024-04-10] MED LIST changes: +ACET650T15 PO; +GABA-282 PO; +ONDA-83 PO; +PROSLIQ PO
== END ==
LOC: M PAL 13:24
PROVIDERS: ATTEND Nurse Practitioner Adult Health
DX: G89.3 Neoplasm related pain (acute) (chronic) (principal); C51.9 Malignant neoplasm of vulva, unspecified; R10.2 Pelvic and perineal pain; K59.00 Constipation, unspecified; Z51.5 Encounter for palliative care; Z79.82 Long term (current) use of aspirin; Z79.891 Long term (current) use of opiate analgesic; Z79.899 Other long term (current) drug therapy; Z86.16 Personal history of COVID-19; Z88.1 Allergy status to other antibiotic agents; Z92.21 Personal history of antineoplastic chemotherapy; Z92.3 Personal history of irradiation; Z91.048 Other nonmedicinal substance allergy status; Z90.710 Acquired absence of both cervix and uterus; Z80.41 Family history of malignant neoplasm of ovary; Z80.6 Family history of leukemia; Z80.1 Family history of malignant neoplasm of trachea, bronchus and lung; Z80.51 Family history of malignant neoplasm of kidney; Z80.49 Family history of malignant neoplasm of other genital organs; F17.210 Nicotine dependence, cigarettes, uncomplicated

== ENCOUNTER → 2024-05-02 | Outpatient (CLI) | payer OTHER | LOC: M ONCR 12:56 | PROVIDERS: ATTEND General Practice | DX: Z08 Encounter for follow-up examination after completed treatment for malignant neoplasm (principal); Z87.42 Personal history of other diseases of the female genital tract; S31.829A Unspecified open wound of left buttock, initial encounter; R11.0 Nausea; F17.210 Nicotine dependence, cigarettes, uncomplicated; Z92.21 Personal history of antineoplastic chemotherapy; Z92.3 Personal history of irradiation; Z79.891 Long term (current) use of opiate analgesic; Z79.82 Long term (current) use of aspirin; Z79.899 Other long term (current) drug therapy; Z88.5 Allergy status to narcotic agent; Z91.048 Other nonmedicinal substance allergy status ==

== ENCOUNTER → 2024-05-23 | Outpatient (CLI) | payer OTHER ==
[~2024-05-23] VITALS: Ht 157.5 cm; Wt 63.3 kg
[2024-05-23 11:25] VITALS: BP 140/95; O2SAT 99
== END ==
LOC: M PAL 10:52
PROVIDERS: ATTEND Nurse Practitioner Adult Health
DX: G89.3 Neoplasm related pain (acute) (chronic) (principal); C51.9 Malignant neoplasm of vulva, unspecified; R10.2 Pelvic and perineal pain; K59.00 Constipation, unspecified; Z51.5 Encounter for palliative care; Z79.82 Long term (current) use of aspirin; Z79.891 Long term (current) use of opiate analgesic; Z79.899 Other long term (current) drug therapy; Z86.16 Personal history of COVID-19; Z88.1 Allergy status to other antibiotic agents; Z92.21 Personal history of antineoplastic chemotherapy; Z92.3 Personal history of irradiation; Z91.048 Other nonmedicinal substance allergy status; Z90.710 Acquired absence of both cervix and uterus; Z80.1 Family history of malignant neoplasm of trachea, bronchus and lung; Z80.41 Family history of malignant neoplasm of ovary; Z80.6 Family history of leukemia; Z80.51 Family history of malignant neoplasm of kidney; Z80.49 Family history of malignant neoplasm of other genital organs; F17.210 Nicotine dependence, cigarettes, uncomplicated

== ENCOUNTER → 2024-06-06 | Outpatient (CLI) | payer OTHER ==
[~2024-06-06] MED LIST changes: +GABA-1172 PO; -GABA-282 PO
== END ==
LOC: M ONCR 13:43
PROVIDERS: ATTEND General Practice
DX: C51.8 Malignant neoplasm of overlapping sites of vulva (principal); S31.829A Unspecified open wound of left buttock, initial encounter; F17.210 Nicotine dependence, cigarettes, uncomplicated; Z92.21 Personal history of antineoplastic chemotherapy; Z92.3 Personal history of irradiation; Z88.1 Allergy status to other antibiotic agents; Z91.048 Other nonmedicinal substance allergy status; Z79.82 Long term (current) use of aspirin; Z79.899 Other long term (current) drug therapy

== ENCOUNTER → 2024-07-04 | Outpatient (CLI) | payer OTHER | LOC: M PAL 11:02 | PROVIDERS: ATTEND Nurse Practitioner Adult Health | DX: G89.3 Neoplasm related pain (acute) (chronic) (principal); Z85.44 Personal history of malignant neoplasm of other female genital organs; R10.2 Pelvic and perineal pain; K59.00 Constipation, unspecified; E73.9 Lactose intolerance, unspecified; Z51.5 Encounter for palliative care; Z79.82 Long term (current) use of aspirin; Z79.891 Long term (current) use of opiate analgesic; Z79.899 Other long term (current) drug therapy; Z86.16 Personal history of COVID-19; Z88.1 Allergy status to other antibiotic agents; Z92.21 Personal history of antineoplastic chemotherapy; Z92.3 Personal history of irradiation; Z91.048 Other nonmedicinal substance allergy status; Z90.710 Acquired absence of both cervix and uterus; Z80.1 Family history of malignant neoplasm of trachea, bronchus and lung; Z80.41 Family history of malignant neoplasm of ovary; Z80.6 Family history of leukemia; Z80.51 Family history of malignant neoplasm of kidney; Z80.49 Family history of malignant neoplasm of other genital organs; F17.210 Nicotine dependence, cigarettes, uncomplicated ==

== ENCOUNTER → 2024-08-08 | Outpatient (CLI) | payer OTHER ==
[~2024-08-08] VITALS: Ht 157.5 cm; Wt 71.1 kg
[~2024-08-08] MED LIST changes: +FLUC10TA PO
[2024-08-08 11:02] VITALS: BP 180/100; O2SAT 99
== END ==
LOC: M PAL 10:39
PROVIDERS: ATTEND Nurse Practitioner Adult Health
DX: G89.3 Neoplasm related pain (acute) (chronic) (principal); B37.2 Candidiasis of skin and nail; Z85.44 Personal history of malignant neoplasm of other female genital organs; R10.2 Pelvic and perineal pain; K59.00 Constipation, unspecified; E73.9 Lactose intolerance, unspecified; R03.0 Elevated blood-pressure reading, without diagnosis of hypertension; F17.210 Nicotine dependence, cigarettes, uncomplicated; Z51.5 Encounter for palliative care; Z79.82 Long term (current) use of aspirin; Z79.891 Long term (current) use of opiate analgesic; Z79.899 Other long term (current) drug therapy; Z86.16 Personal history of COVID-19; Z88.1 Allergy status to other antibiotic agents; Z91.048 Other nonmedicinal substance allergy status; Z92.21 Personal history of antineoplastic chemotherapy; Z92.3 Personal history of irradiation; Z90.710 Acquired absence of both cervix and uterus; Z80.1 Family history of malignant neoplasm of trachea, bronchus and lung; Z80.41 Family history of malignant neoplasm of ovary; Z80.6 Family history of leukemia; Z80.51 Family history of malignant neoplasm of kidney; Z80.49 Family history of malignant neoplasm of other genital organs

== ENCOUNTER → 2024-09-03 | Outpatient (CLI) | payer OTHER ==
[~2024-09-03] MED LIST changes: +ISOVUE-370 76% 100ML VIAL ONE
== END ==
LOC: M PLAIMG 08:34
PROVIDERS: ATTEND Internal Medicine Medical Oncology
DX: C51.9 Malignant neoplasm of vulva, unspecified (principal)

== ENCOUNTER → 2024-09-05 | Outpatient (CLI) | payer OTHER ==
[~2024-09-05] MED LIST changes: -ISOVUE-370 76% 100ML VIAL ONE
== END ==
LOC: M ONCR 10:58
PROVIDERS: ATTEND General Practice
DX: C51.8 Malignant neoplasm of overlapping sites of vulva (principal); F17.210 Nicotine dependence, cigarettes, uncomplicated; Z92.21 Personal history of antineoplastic chemotherapy; Z92.3 Personal history of irradiation; Z88.1 Allergy status to other antibiotic agents; Z91.048 Other nonmedicinal substance allergy status; Z79.82 Long term (current) use of aspirin; Z79.899 Other long term (current) drug therapy

== ENCOUNTER → 2024-10-10 | Outpatient (CLI) | payer OTHER ==
[~2024-10-10] VITALS: Ht 157.5 cm; Wt 77.6 kg
[2024-10-10 14:42] VITALS: BP 178/93; O2SAT 98
== END ==
LOC: M PAL 14:23
PROVIDERS: ATTEND Family Medicine
DX: Z51.5 Encounter for palliative care (principal); C51.9 Malignant neoplasm of vulva, unspecified; R52 Pain, unspecified; T81.31XA Disruption of external operation (surgical) wound, not elsewhere classified, initial encounter; Z98.890 Other specified postprocedural states; Z79.82 Long term (current) use of aspirin; Z79.899 Other long term (current) drug therapy; Z88.1 Allergy status to other antibiotic agents; Z91.048 Other nonmedicinal substance allergy status; Z92.21 Personal history of antineoplastic chemotherapy; Z92.3 Personal history of irradiation

== ENCOUNTER → 2025-01-08 | Outpatient (CLI) | payer OTHER ==
[~2025-01-08] VITALS: Ht 157.5 cm; Wt 82.1 kg
[2025-01-08 13:45] VITALS: BP 142/86; O2SAT 99
== END ==
LOC: M PAL 13:22
PROVIDERS: ATTEND Physician Assistant
DX: Z51.5 Encounter for palliative care (principal); C51.9 Malignant neoplasm of vulva, unspecified; Z98.890 Other specified postprocedural states; Z92.21 Personal history of antineoplastic chemotherapy; Z92.3 Personal history of irradiation; R52 Pain, unspecified; Z79.82 Long term (current) use of aspirin; Z79.899 Other long term (current) drug therapy; Z88.1 Allergy status to other antibiotic agents; Z91.048 Other nonmedicinal substance allergy status

== ENCOUNTER → 2025-03-06 | Outpatient (CLI) | payer OTHER ==
[~2025-03-06] MED LIST changes: -ACE65ERTAB PO; +ACET-1515 PO; +ACET-1593 PO; -ACET650T15 PO; +GNP250TA9 PO; +LISI40TA10 PO; -LISI40TA4 PO; +LORA-1164 PO; -LORA-622 PO; +NYST100085 TOP; +POTA8CAP10 PO; +TRIA80CR15 TOP
== END ==
LOC: M ONCR 10:54
PROVIDERS: ATTEND General Practice
DX: C51.8 Malignant neoplasm of overlapping sites of vulva (principal); S31.829A Unspecified open wound of left buttock, initial encounter; L59.8 Other specified disorders of the skin and subcutaneous tissue related to radiation; Y84.2 Radiological procedure and radiotherapy as the cause of abnormal reaction of the patient, or of later complication, without mention of misadventure at the time of the procedure; F17.210 Nicotine dependence, cigarettes, uncomplicated; Z92.21 Personal history of antineoplastic chemotherapy; Z92.3 Personal history of irradiation; Z88.1 Allergy status to other antibiotic agents; Z91.048 Other nonmedicinal substance allergy status; Z79.82 Long term (current) use of aspirin; Z79.899 Other long term (current) drug therapy

== ENCOUNTER → 2025-04-09 | Outpatient (CLI) | payer OTHER ==
[~2025-04-09] VITALS: Ht 160 cm; Wt 85.0 kg
[~2025-04-09] MED LIST changes: +ACE65ERTAB PO; -ACET-1515 PO; -ACET-1593 PO; +ACET650T15 PO
[2025-04-09 14:09] VITALS: BP 142/64; O2SAT 99
== END ==
LOC: M PAL 13:39
PROVIDERS: ATTEND Physician Assistant
DX: Z08 Encounter for follow-up examination after completed treatment for malignant neoplasm (principal); Z92.21 Personal history of antineoplastic chemotherapy; Z92.3 Personal history of irradiation; Z79.891 Long term (current) use of opiate analgesic; Z88.6 Allergy status to analgesic agent; Z91.048 Other nonmedicinal substance allergy status; Z79.899 Other long term (current) drug therapy; Z79.82 Long term (current) use of aspirin

== ENCOUNTER → 2025-06-07 | Outpatient (CLI) | payer OTHER ==
[~2025-06-07] MED LIST changes: -ACE65ERTAB PO; +ACET-1515 PO; +ACET-1593 PO; -ACET650T15 PO; -IBUP-1022; +IBUP600T42; +ISOVUE-370 76% 100 ML VIAL As Ordered ONE
== END ==
LOC: M RAD 11:07
PROVIDERS: ATTEND Internal Medicine Medical Oncology
DX: C51.9 Malignant neoplasm of vulva, unspecified (principal); R91.8 Other nonspecific abnormal finding of lung field; K76.0 Fatty (change of) liver, not elsewhere classified; N28.1 Cyst of kidney, acquired; N20.0 Calculus of kidney; K57.90 Diverticulosis of intestine, part unspecified, without perforation or abscess without bleeding; M47.815 Spondylosis without myelopathy or radiculopathy, thoracolumbar region; K42.9 Umbilical hernia without obstruction or gangrene
CPT/HCPCS: 71260; 74177; Q9967

== ENCOUNTER → 2025-07-08 | Outpatient (CLI) | payer OTHER ==
[~2025-07-08] VITALS: Ht 170.2 cm; Wt 90.7 kg
[~2025-07-08] MED LIST changes: +BENA1TAB24 PO; -ISOVUE-370 76% 100 ML VIAL As Ordered ONE
[2025-07-08 10:41] VITALS: BP 152/90; O2SAT 97
== END ==
LOC: M PAL 10:06
PROVIDERS: ATTEND Physician Assistant
DX: Z51.5 Encounter for palliative care (principal); C51.9 Malignant neoplasm of vulva, unspecified; R52 Pain, unspecified; Z71.2 Person consulting for explanation of examination or test findings; Z79.82 Long term (current) use of aspirin; Z79.891 Long term (current) use of opiate analgesic; Z79.899 Other long term (current) drug therapy; Z88.1 Allergy status to other antibiotic agents; Z91.048 Other nonmedicinal substance allergy status; Z92.21 Personal history of antineoplastic chemotherapy; Z92.3 Personal history of irradiation

== ENCOUNTER → 2025-08-01 | Outpatient (CLI) | payer OTHER ==
[~2025-08-01] MED LIST changes: +LABE100T6
[2025-08-01 17:33] LABS: BASO # 0.0 10^3/uL (0.0-0.2); BASO % 0.5 % (0.0-1.0); EOS # 0.1 10^3/uL (0.0-0.5); EOS % 1.9 % (0.0-3.0); LYMPH # 1.4 10^3/uL (1.5-5.0); LYMPH % 22.3 % (24.0-44.0); MONO # 0.5 10^3/uL (0.0-0.8); MONO % 7.2 % (2.0-8.0); NEUTROPHILS # 4.2 10^3/uL (1.5-8.5); NEUTROPHILS % 67.8 % (36.0-66.0); PLATELET COUNT, AUTOMATED 286 10^3/uL (150-450)
[2025-08-01 17:53] LABS: ALT/SGPT 13.0 U/L (7.0-40); AST/SGOT 18.0 U/L (<34); CALCIUM LEVEL 8.9 MG/DL (8.5-10.1); CARBON DIOXIDE LEVEL 26.0 MMOL/L (20-31); CHLORIDE LEVEL 108.0 MMOL/L (98-107); CREATININE FOR GFR 0.84 MG/DL (0.55-1.30); GLOMERULAR FILTRATION RATE 81.5 (>51); POTASSIUM SERUM 3.9 MMOL/L (3.5-5.1); SODIUM LEVEL 142.0 MMOL/L (136-145)
[2025-08-01 18:11] LABS: CA 125 4.0 U/ML (<35)
== END ==
LOC: M LAB 16:53
PROVIDERS: ATTEND Internal Medicine Medical Oncology
DX: C51.9 Malignant neoplasm of vulva, unspecified (principal)

== ENCOUNTER → 2025-08-30 | Outpatient (CLI) | payer OTHER ==
[~2025-08-30] MED LIST changes: +ACET-1387 PO; -ACET-1593 PO; -BACTDSTA PO; +ISOVUE-370 76% 100 ML VIAL As Ordered ONE; -LABE100T6; +LABE100T91; +SULF-8 PO
== END ==
LOC: M RAD 08:58
PROVIDERS: ATTEND General Practice
DX: C51.8 Malignant neoplasm of overlapping sites of vulva (principal); N28.1 Cyst of kidney, acquired; R91.8 Other nonspecific abnormal finding of lung field; J43.2 Centrilobular emphysema
CPT/HCPCS: 71260; 74177; Q9967

== ENCOUNTER → 2025-09-06 | Outpatient (CLI) | payer OTHER ==
[~2025-09-06] MED LIST changes: +DICY-61 PO; -ISOVUE-370 76% 100 ML VIAL As Ordered ONE; +ONDA-282 SL; +[UNRECOGNIZED DRUG - CODE] TP
== END ==
LOC: M ONCR 09:19
PROVIDERS: ATTEND General Practice
DX: C51.9 Malignant neoplasm of vulva, unspecified (principal); N76.4 Abscess of vulva; F17.210 Nicotine dependence, cigarettes, uncomplicated; Z79.82 Long term (current) use of aspirin; Z79.899 Other long term (current) drug therapy; Z88.1 Allergy status to other antibiotic agents; Z91.09 Other allergy status, other than to drugs and biological substances; Z92.21 Personal history of antineoplastic chemotherapy; Z92.3 Personal history of irradiation

== ENCOUNTER → 2025-09-09 | Outpatient (CLI) | payer OTHER ==
[~2025-09-09] VITALS: Ht 157.5 cm; Wt 91.9 kg
[2025-09-09 11:50] VITALS: BP 118/76; O2SAT 96
== END ==
LOC: M PAL 11:12
PROVIDERS: ATTEND Physician Assistant
DX: Z51.5 Encounter for palliative care (principal); Z85.42 Personal history of malignant neoplasm of other parts of uterus; Z92.21 Personal history of antineoplastic chemotherapy; Z92.3 Personal history of irradiation; Z79.891 Long term (current) use of opiate analgesic; Z88.6 Allergy status to analgesic agent; Z91.048 Other nonmedicinal substance allergy status; Z79.82 Long term (current) use of aspirin; Z79.02 Long term (current) use of antithrombotics/antiplatelets; Z79.83 Long term (current) use of bisphosphonates